=== PATIENT | female | born 2000 | race African-American/Black ===

== ENCOUNTER 2021-12-12 06:34 | Emergency (ER) | payer OTHER ==
[2021-12-12 06:42] VITALS: RESP 18; TEMP 98.7; BMI 51.2
[2021-12-12] MEDS ORDERED: ACETAMINOPHEN 1000 MG/100 ML BAG IVPB ONE (08:32)
[2021-12-12] MEDS ORDERED: MAG HYDROX/AL HYDROX/SIMETH -MYLANTA- ORAL SUSPENSION PO ONE (08:32)
[2021-12-12] MEDS ORDERED: FAMOTIDINE 20 MG/50 ML IVPB 20 MG/50 ML MG IVPB ONE ×2 (08:32→08:36)
[2021-12-12] MEDS ORDERED: MAG HYDROX/AL HYDROX/SIMETH 30 ML UNIT-DOSE CUP ONE (08:36)
[2021-12-12] MEDS ORDERED: ACETAMINOPHEN INJECTION 100 ML IVPB ONE (08:36)
[2021-12-12 09:26] LABS: BASO % 0.6 % (0-2.0); EOS % 2.4 % (0-4.5); HEMATOCRIT 39.6 % (32.4-45.2); LYMPH % 36.6 % (8-40); MCH 27.6 pg (25.7-33.7); MCHC 32.8 g/dl (32.0-36.0); MEAN PLT VOLUME 8.1 fl (7.5-11.1); MONO % 5.8 % (3.8-10.2); NEUT % 54.6 % (42.8-82.8); PLATELET COUNT 375 10^3/uL (134-434); RBC 4.71 M/mm3 (3.60-5.2); RDW 12.9 % (11.6-15.6); WHITE BLOOD COUNT 7.7 K/mm3 (4.0-10.0)
[2021-12-12 09:40] LABS: CALCIUM 9.5 mg/dL (8.5-10.1)
[2021-12-12 09:41] LABS: ALBUMIN 4.2 g/dl (3.4-5.0); BLOOD UREA NITROGEN 9.4 mg/dL (7-18); CO2 23 mmol/L (21-32); MAGNESIUM 2.2 mg/dL (1.8-2.4)
[2021-12-12 09:44] LABS: CREATININE 0.9 mg/dL (0.55-1.3); SGOT/AST 18 U/L (15-37); SGPT/ALT 36 U/L (13-61)
[2021-12-12 09:45] LABS: BILIRUBIN,TOTAL 0.6 mg/dL (0.2-1)
[2021-12-12 09:46] LABS: ALK PHOS 65 U/L (45-117)
[2021-12-12 09:48] LABS: N-TERMINAL BNP 50.5 pg/ml (5-125)
[2021-12-12 09:49] LABS: ANION GAP 12 MMOL/L (8-16); CHLORIDE 97 mmol/L (98-107); GLUCOSE,RANDOM 407 mg/dL (74-106); SODIUM 133 mmol/L (136-145)
[2021-12-12] MEDS ORDERED: SODIUM CHLORIDE 0.9% 500 ML INFUS.BAG IV ONE (09:50)
[2021-12-12] MEDS ORDERED: INSULIN REGULAR HUMAN 100 UNITS/ML *VIAL SQ ONE (10:20)
[2021-12-12] MEDS ORDERED: AMOX TR/POT CLAV 875MG/125MG TABLETS (FP) PO ONE (10:20)
[2021-12-12] MEDS ORDERED: AMOX TR/POT CLAV 875MG/125MG TABLETS (FP) ONE (10:46)
[2021-12-12 12:58] VITALS: BP 144/72; PULSE 88
== END 2021-12-12 12:30 | disposition home or self-care (01) ==
LOC: JER 06:34
PROC: 3E023GC Introduction of Other Therapeutic Substance into Muscle, Percutaneous Approach (ICD-10-PCS; principal; 2021-12-12)
PROC: 3E033GC Introduction of Other Therapeutic Substance into Peripheral Vein, Percutaneous Approach (ICD-10-PCS; principal; 2021-12-12)
DX: E11.65 Type 2 diabetes mellitus with hyperglycemia (principal); R07.9 Chest pain, unspecified; H00.015 Hordeolum externum left lower eyelid
CPT/HCPCS: 36415; 71046-TC-FY; 80053; 82962; 83735; 83880; 84484; 84703; 85025; 93005; 93010; 99285-25; C9803-CS; U0003; U0005

== ENCOUNTER 2023-02-03 17:41 | Emergency (ER) | payer BC ==
[2023-02-03 17:45] VITALS: BP 130/65; PULSE 84; RESP 18; TEMP 98.3; BMI 39.3
[2023-02-03] MEDS ORDERED: SODIUM CHLORIDE 0.9% 500 ML INFUS.BAG IV ONE (19:35)
[2023-02-03] MEDS ORDERED: ONDANSETRON 4 MG/2 ML VIAL IVPUSH ONE (19:35)
[2023-02-03] MEDS ORDERED: FAMOTIDINE 20 MG/50 ML IVPB 20 MG/50 ML MG IVPB ONE (19:35)
[2023-02-03] MEDS ORDERED: ONDANSETRON 4 MG/2 ML VIAL ONE (19:38)
[2023-02-03] MEDS ORDERED: FAMOTIDINE 10 MG/ML VIAL IVPB ONE (19:39)
[2023-02-03 20:06] LABS: EPI CELLS >36 /uL (0-25.1); HCG,QUALITATIVE URINE Negative; HYALINE CASTS 2 /uL (0-3.1); PH,URINE 5.5 (5.0-8.0); URINE APPEARANCE CLEAR; URINE BACTERIA 328 /uL (0-1359); URINE BILIRUBIN 2+ (NEGATIVE); URINE COLOR DK YELLOW; URINE GLUCOSE (UA) NEGATIVE (NEGATIVE); URINE KETONE 1+ (NEGATIVE); URINE LEUK ESTERASE NEGATIVE (NEGATIVE); URINE NITRITE NEGATIVE (NEGATIVE); URINE PROTEIN 1+ (NEGATIVE); URINE RBC 12 /uL (0-23.9); URINE WBC 12 /uL (0-25.8)
[2023-02-03 20:08] LABS: BASO % 0.6 % (0-2.0); EOS % 3.2 % (0-4.5); HEMATOCRIT 39.4 % (32.4-45.2); HEMOGLOBIN 12.7 GM/dL (10.7-15.3); LYMPH % 42.9 % (8-40); MCH 27.7 pg (25.7-33.7); MCHC 32.3 g/dl (32.0-36.0); MEAN CELL VOLUME 85.9 fl (80-96); MEAN PLT VOLUME 8.2 fl (7.5-11.1); MONO % 5.9 % (3.8-10.2); NEUT % 47.4 % (42.8-82.8); PLATELET COUNT 395 10^3/uL (134-434); RBC 4.59 M/mm3 (3.60-5.2); RDW 14.4 % (11.6-15.6); WHITE BLOOD COUNT 8.1 K/mm3 (4.0-10.0)
[2023-02-03 20:43] LABS: POTASSIUM 4.1 mmol/L (3.5-5.1)
[2023-02-03 20:45] LABS: CALCIUM 9.5 mg/dL (8.5-10.1)
[2023-02-03 20:46] LABS: BLOOD UREA NITROGEN 12.6 mg/dL (7-18)
[2023-02-03 20:49] LABS: CREATININE 0.8 mg/dL (0.55-1.3)
[2023-02-03 20:50] LABS: BILIRUBIN,TOTAL 0.2 mg/dL (0.2-1); TOT PROT 7.8 g/dl (6.4-8.2)
== END 2023-02-03 23:31 | disposition left against medical advice (07) ==
LOC: JER 17:41
PROC: 3E033GC Introduction of Other Therapeutic Substance into Peripheral Vein, Percutaneous Approach (ICD-10-PCS; principal; 2023-02-03)
PROC: 3E033GC Introduction of Other Therapeutic Substance into Peripheral Vein, Percutaneous Approach (ICD-10-PCS; 2023-02-03)
DX: R11.2 Nausea with vomiting, unspecified (principal); J30.9 Allergic rhinitis, unspecified; R10.9 Unspecified abdominal pain; R09.81 Nasal congestion; J02.9 Acute pharyngitis, unspecified; R05.9 Cough, unspecified; K21.9 Gastro-esophageal reflux disease without esophagitis; Z98.84 Bariatric surgery status
CPT/HCPCS: 36415; 71046-TC-FY; 80053; 81003; 84703; 85025; 87086; 96365; 96375; 99284-25

== ENCOUNTER 2023-04-28 05:59 | Emergency (ER) | payer BC ==
[2023-04-28 06:07] VITALS: BP 128/72; PULSE 74; RESP 18; TEMP 98.3; BMI 38.5
[2023-04-28] MEDS ORDERED: PYRIDOXINE HCL (B-6) 100 MG TABLET PO ONE (07:45)
[2023-04-28 08:25] LABS: EPI CELLS >36 /uL (0-25.1); HYALINE CASTS 8 /uL (0-3.1); PH,URINE 5.5 (5.0-8.0); URINE APPEARANCE TURBID; URINE BACTERIA 2351 /uL (0-1359); URINE BILIRUBIN NEGATIVE (NEGATIVE); URINE COLOR ORANGE; URINE GLUCOSE (UA) NEGATIVE (NEGATIVE); URINE KETONE TRACE (NEGATIVE); URINE LEUK ESTERASE NEGATIVE (NEGATIVE); URINE NITRITE NEGATIVE (NEGATIVE); URINE PROTEIN 1+ (NEGATIVE); URINE RBC 10 /uL (0-23.9); URINE WBC 24 /uL (0-25.8)
[2023-04-28] MEDS ORDERED: PYRIDOXINE HCL (B-6) 50 MG TABLET (FP) PO ONE (08:30)
[2023-04-28] MEDS ORDERED: CEPHALEXIN MONOHYDRATE 500 MG CAPSULE (UD) PO ONE (08:33)
[2023-04-28] MEDS ORDERED: CEPHALEXIN MONOHYDRATE 500 MG CAPSULE (UD) ONE (09:01)
== END 2023-04-28 09:05 | disposition home or self-care (01) ==
LOC: JER 05:59
DX: O21.9 Vomiting of pregnancy, unspecified (principal); O99.611 Diseases of the digestive system complicating pregnancy, first trimester; K59.00 Constipation, unspecified; Z3A.01 Less than 8 weeks gestation of pregnancy
CPT/HCPCS: 81003; 84703; 87086; 99283-25

== ENCOUNTER 2023-10-08 17:15 | Observation (INO) | payer BC ==
[2023-10-08 18:20] LABS: BASO % 0.7 % (0-2.0); HEMATOCRIT 37.1 % (32.4-45.2); HEMOGLOBIN 12.3 GM/dL (10.7-15.3); MCH 27.5 pg (25.7-33.7); MCHC 33.1 g/dl (32.0-36.0); MEAN CELL VOLUME 83.2 fl (80-96); MEAN PLT VOLUME 7.2 fl (7.5-11.1); MONO % 9.2 % (3.8-10.2); NEUT % 52.1 % (42.8-82.8); PLATELET COUNT 375 10^3/uL (134-434); RBC 4.46 M/mm3 (3.60-5.2); RDW 12.4 % (11.6-15.6); WHITE BLOOD COUNT 5.7 K/mm3 (4.0-10.0)
[2023-10-08 18:36] LABS: POTASSIUM 4.3 mmol/L (3.5-5.1)
[2023-10-08 18:40] LABS: ALBUMIN 2.9 g/dl (3.4-5.0); BLOOD UREA NITROGEN 9.5 mg/dL (7-18); CALCIUM 9.6 mg/dL (8.5-10.1)
[2023-10-08 18:43] LABS: CREATININE 0.7 mg/dL (0.55-1.3)
[2023-10-08 18:45] LABS: BILIRUBIN,TOTAL 0.7 mg/dL (0.2-1); TOT PROT 7.2 g/dl (6.4-8.2)
[2023-10-08] MEDS: SODIUM CHLORIDE 500 ML IV SCH ×2 (19:00→19:30)
[2023-10-08 19:59] LABS: URINE APPEARANCE CLEAR; URINE BILIRUBIN NEGATIVE (NEGATIVE); URINE COLOR YELLOW; URINE GLUCOSE (UA) NEGATIVE (NEGATIVE); URINE KETONE 2+ (NEGATIVE); URINE LEUK ESTERASE NEGATIVE (NEGATIVE); URINE NITRITE NEGATIVE (NEGATIVE); URINE PROTEIN TRACE (NEGATIVE)
[2023-10-08 20:14] VITALS: RESP 17
[2023-10-08] MEDS ORDERED: ACETAMINOPHEN INJECTION 100 ML IVPB ONE (20:29)
[2023-10-08] MEDS: ACETAMINOPHEN 1000 MG/100 ML BAG IVPB ONE (20:35)
[2023-10-08 22:05] VITALS: BMI 39.8
[2023-10-08] MEDS: SODIUM CHLORIDE 1,000 ML IV SCH (22:22)
[2023-10-09 06:41] LABS: BASO % 0.7 % (0-2.0); EOS % 5.8 % (0-4.5); HEMATOCRIT 34.6 % (32.4-45.2); HEMOGLOBIN 11.5 GM/dL (10.7-15.3); LYMPH % 34.3 % (8-40); MCHC 33.4 g/dl (32.0-36.0); MEAN CELL VOLUME 83.7 fl (80-96); MEAN PLT VOLUME 7.1 fl (7.5-11.1); MONO % 9.6 % (3.8-10.2); NEUT % 49.6 % (42.8-82.8); PLATELET COUNT 355 10^3/uL (134-434); RBC 4.13 M/mm3 (3.60-5.2); RDW 12.5 % (11.6-15.6); WHITE BLOOD COUNT 4.8 K/mm3 (4.0-10.0)
[2023-10-09 06:42] LABS: INR 1.09 (0.83-1.09); PROTHROMBIN TIME (PATIENT) 12.3 SEC (9.7-13.0)
[2023-10-09 06:44] LABS: ACTIVATED PTT 30.7 SECONDS (25.2-36.5)
[2023-10-09 06:52] LABS: POTASSIUM 3.9 mmol/L (3.5-5.1)
[2023-10-09 06:55] LABS: ALBUMIN 2.7 g/dl (3.4-5.0); CALCIUM 9.1 mg/dL (8.5-10.1)
[2023-10-09 06:56] LABS: BLOOD UREA NITROGEN 9.4 mg/dL (7-18)
[2023-10-09 06:59] LABS: CREATININE 0.6 mg/dL (0.55-1.3)
[2023-10-09 07:01] LABS: BILIRUBIN,TOTAL 0.5 mg/dL (0.2-1); TOT PROT 6.5 g/dl (6.4-8.2)
[2023-10-09] MEDS ORDERED: ACETAMINOPHEN INJECTION 100 ML IVPB ONE (09:14)
[2023-10-09] MEDS: ACETAMINOPHEN 1000 MG/100 ML BAG IVPB ONE (09:15)
[2023-10-09 09:21] VITALS: BP 126/52; PULSE 98; TEMP 99.9
[2023-10-09] MEDS: ASPIRIN 81 MG CHEWABLE TABLETS PO SCH (11:16)
== END 2023-10-09 11:14 | disposition home or self-care (01) ==
LOC: JDEL 17:15 → JLDR 20:45
PROVIDERS: ADMIT Obstetrics & Gynecology; ATTEND Obstetrics & Gynecology
PROC: 3E0337Z Introduction of Electrolytic and Water Balance Substance into Peripheral Vein, Percutaneous Approach (ICD-10-PCS; principal; 2023-10-08)
PROC: 3E033NZ Introduction of Analgesics, Hypnotics, Sedatives into Peripheral Vein, Percutaneous Approach (ICD-10-PCS; 2023-10-08)
DX: O26.893 Other specified pregnancy related conditions, third trimester (principal); Z3A.30 30 weeks gestation of pregnancy; O99.213 Obesity complicating pregnancy, third trimester; Z98.84 Bariatric surgery status
CPT/HCPCS: 0241U-QW; 36415; 59025; 71045-TC-FY; 76819-TC; 80053; 81003; 85025; 85610; 85730; 87086; 87651; 96361; 96374; 96376; G0378; J0131

== ENCOUNTER 2023-10-11 15:51 | Inpatient (IN) | payer BC ==
[2023-10-11 16:32] VITALS: RESP 18; BMI 39.4
[2023-10-11 17:59] LABS: BASO % 1.1 % (0-2.0); EOS % 4.7 % (0-4.5); HEMATOCRIT 38.1 % (32.4-45.2); HEMOGLOBIN 12.6 GM/dL (10.7-15.3); LYMPH % 40.7 % (8-40); MCH 27.4 pg (25.7-33.7); MCHC 33.2 g/dl (32.0-36.0); MEAN CELL VOLUME 82.7 fl (80-96); MEAN PLT VOLUME 7.3 fl (7.5-11.1); MONO % 10.2 % (3.8-10.2); NEUT % 43.3 % (42.8-82.8); PLATELET COUNT 425 10^3/uL (134-434); RBC 4.61 M/mm3 (3.60-5.2); RDW 12.4 % (11.6-15.6); WHITE BLOOD COUNT 5.5 K/mm3 (4.0-10.0)
[2023-10-11 18:00] LABS: PH,URINE 7.5 (5.0-8.0); URINE APPEARANCE CLEAR; URINE BILIRUBIN NEGATIVE (NEGATIVE); URINE COLOR YELLOW; URINE GLUCOSE (UA) NEGATIVE (NEGATIVE); URINE KETONE NEGATIVE (NEGATIVE); URINE LEUK ESTERASE NEGATIVE (NEGATIVE); URINE NITRITE NEGATIVE (NEGATIVE); URINE PROTEIN NEGATIVE (NEGATIVE)
[2023-10-11] MEDS ORDERED: ACETAMINOPHEN INJECTION 100 ML IVPB ONE (18:14)
[2023-10-11 18:18] LABS: POTASSIUM 4.3 mmol/L (3.5-5.1)
[2023-10-11 18:20] LABS: INR 1.04 (0.83-1.09); PROTHROMBIN TIME (PATIENT) 11.9 SEC (9.7-13.0)
[2023-10-11 18:20] LABS: CALCIUM 9.5 mg/dL (8.5-10.1)
[2023-10-11 18:21] LABS: ALBUMIN 2.8 g/dl (3.4-5.0); BLOOD UREA NITROGEN 7.1 mg/dL (7-18)
[2023-10-11 18:24] LABS: CREATININE 0.6 mg/dL (0.55-1.3)
[2023-10-11] MEDS: ACETAMINOPHEN 1000 MG/100 ML BAG IVPB ONE (18:24)
[2023-10-11] MEDS: SODIUM CHLORIDE 0.9% 1000 ML INFUS.BAG IV ONE (18:24)
[2023-10-11 18:26] LABS: BILIRUBIN,TOTAL 0.3 mg/dL (0.2-1); TOT PROT 7.3 g/dl (6.4-8.2)
[2023-10-11 20:33] VITALS: TEMP 98.2
[2023-10-11] MEDS ORDERED: ENOXAPARIN NA (PORCINE) 100 MG/1 ML DISP.SYRIN SQ ONE (20:41)
[2023-10-11] MEDS: ENOXAPARIN NA (PORCINE) 100 MG/1 ML DISP.SYRIN SQ ONE (20:57)
[2023-10-11 23:05] VITALS: BP 125/67; PULSE 110
[2023-10-11] MEDS ORDERED: BETAMET ACET/BETAMET NA PH 30 MG/5 ML VIAL ONE (23:58)
[2023-10-12] MEDS: BETAMET ACET/BETAMET NA PH 30 MG/5 ML VIAL IM ONE (00:15)
== END 2023-10-12 03:20 | disposition short-term general hospital (02) | DRG 566 ==
LOC: JER 15:51 → JERBED 20:48 → JLDR 21:22
PROVIDERS: ADMIT Obstetrics & Gynecology; ATTEND Obstetrics & Gynecology
DX: O22.33 Deep phlebothrombosis in pregnancy, third trimester (principal); I82.411 Acute embolism and thrombosis of right femoral vein; O99.213 Obesity complicating pregnancy, third trimester; O24.410 Gestational diabetes mellitus in pregnancy, diet controlled; Z3A.30 30 weeks gestation of pregnancy
CPT/HCPCS: 0241U-QW; 36415; 76512; 76815; 76819-TC; 80053; 81003; 82962; 83605; 85025; 85610; 85730; 87040; 87086; 87491; 87591; 87661; 93970-TC; 96372; 99285-25; J0131